=== PATIENT | female | born 1945 | race Caucasian/White ===

== ENCOUNTER 2022-11-14 14:22 | Emergency (ER) | payer MEDICARE, OTHER ==
[2022-11-14] MEDS ORDERED: Sodium Chloride 0.9% 10 ML Syringe FLUSH PRN (15:05)
[2022-11-14 16:34] LABS: PTT,PARTIAL THROMBOPLSTIN TIME 23.2 SEC (22.0-34.0)
[2022-11-14] MEDS ORDERED: Sodium Chloride 0.9% 1,000 ML IV ONE (16:37)
[2022-11-14] MEDS ORDERED: Iopamidol 612 MG/ML 100 ML Bottle IVPUSH ONE (16:39)
[2022-11-14] MEDS ORDERED: Ciprofloxacin 500 MG Tab PO ONE (17:41)
[2022-11-14] MEDS ORDERED: metroNIDAZOLE 250 MG Tab PO ONE (17:42)
== END 2022-11-14 18:24 | disposition home or self-care (01) ==
LOC: DL.ED 14:22
DX: K57.32 Diverticulitis of large intestine without perforation or abscess without bleeding (principal); E66.9 Obesity, unspecified; Z68.44 Body mass index [BMI] 60.0-69.9, adult; Z88.0 Allergy status to penicillin; Z88.5 Allergy status to narcotic agent; Z88.8 Allergy status to other drugs, medicaments and biological substances
CPT/HCPCS: 36415; 74177; 80053; 82150; 83605; 83690; 85025; 85610; 85730; 96360; 99285; A9270; J7030; Q9967; J3490